=== PATIENT | female | born 1970 | race Caucasian/White ===

== ENCOUNTER 2020-06-29 15:59 | Emergency (ER) | payer MEDICAID, SELFPAY ==
--- NOTE | ~2020-06-29 | XR_ITS ---
EXAMINATION: XR foot RT min 3V DATE: 06/29/2020 16:38 INDICATION: Lateral right foot pain TECHNIQUE: Dorsoplantar, two oblique and lateral views of the right foot were obtained. COMPARISON: None. FINDINGS: There is minimal lateral DORSAL lateral subluxation at the second-fifth tarsal metatarsal joints. Reg ular cortical contour along the distal articular surfaces of the cuneiforms and cuboid which could be due to secondary osteoarthritis or age-indeterminate fracture in the appropriate clinical setting. S mall amount of heterotopic ossification at the first intermetatarsal space along the lateral base of the first metatarsal which suggests chronic injury. Mild osteoarthritis at the first metatarsophalang eal joint. Small Achilles and plantar calcaneal spurs. Prominent soft tissue swelling about the midfo ot. IMPRESSION: 1. Lisfranc joint injury with minimal lateral dorsolateral subluxation of the second-fourth metatarsa ls. 2. Regular cortical contour along portions of the distal articular surfaces of the cuneiforms and cub oid which could be related to secondary osteoarthritis or fractures in the setting of earlier trauma. In the absence of trauma the pattern could be seen in the setting of diabetic neuropathy/Charcot justino nt. Reviewed, dictated and finalized at location [facility] IMPRESSION: 1. Lisfranc joint injury with minimal lateral dorsolateral subluxation of the s econd-fourth metatarsals. 2. Regular cortical contour along portions of the distal articular surfaces of the cuneiforms and cuboid which could be related to secondary osteoarthritis or fractures in the setting of earlier trauma. In the absence of trauma the patte rn could be seen in the setting of diabetic neuropathy/Charcot joint.
[2020-06-29 16:00] VITALS: BP 196/84; PULSE 98; RESP 16; TEMP 36.4; O2SAT 100
--- NOTE | 2020-06-29 16:48 | ED.GENADULT ---
HPI - General Adult General Chief complaint: Extremity Injury, Lower <Silas Wilkinson PA-C - Last Filed: 06/29/20 18:16> Stated complaint: RIGHT FOOT INJURY <Silas Wilkinson PA-C - Last Filed: 06/29/20 18:16> Time Seen by Provider: 06/29/20 16:03 <Silas Wilkinson PA-C - Last Filed: 06/29/20 18:16> Source: patient and family <Silas Wilkinson PA-C - Last Filed: 06/29/20 18:16> Mode of arrival: ambulatory <Silas Wilkinson PA-C - Last Filed: 06/29/20 18:16> Limitations: no limitations <Silas Wilkinson PA-C - Last Filed: 06/29/20 18:16> History of Present Illness HPI narrative: Patient is a 50-year-old female who presents with pain to the right foot that has been present since Wednesday when she took her boot off and stepped down and had instant pain in the foot followed by swelling which she knows has improved patient has been resting and elevating the extremity with limited to no weightbearing and presents with family today noting she continues to have swelling and pain. Patient denies other injuries or complaints or similar occurrence in the past <Silas Wilkinson PA-C - Last Filed: 06/29/20 18:16> Related Data Home medications: Home Medications Medication Instructions Recorded Confirmed omeprazole [Prilosec] 20 mg PO DAILY 06/29/20 06/29/20 <Silas Wilkinson PA-C - Last Filed: 06/29/20 18:16> Allergies/adverse reactions: Allergies Allergy/AdvReac Type Severity Reaction Status Date / Time No Known Allergies Allergy Verified 06/29/20 16:07 <Silas Wilkinson PA-C - Last Filed: 06/29/20 18:16> Review of Systems Review of Systems: All systems reviewed & are unremarkable except as noted in HPI and below <Silas Wilkinson PA-C - Last Filed: 06/29/20 18:16> [facility] Social History Social History: Social History (Updated 06/29/20 @ 16:49 by Silas Wilkinson PA-C) Smoking status: Never smoker <Silas Wilkinson PA-C - Last Filed: 06/29/20 18:16> Exam Narrative: Exam Narrative: GENERAL: Well-appearing, well-nourished, and in no acute distress. HEAD: Normocephalic, atraumatic. EYES: PERRLA and EOMI. ENT: Nares clear, no rhinorrhea or epistaxis. Mucous membranes moist. EXTREMITIES: Normal range of motion. 2+ edema with bruising swelling and tenderness across the forefoot midfoot of the right foot ankle nontender SKIN: Warm, dry, no rash. NEURO: No focal deficits. Alert and oriented x3. Neurovascularly intact. Capillary refill less than 2 seconds PSYCH: Normal mood and affect. <JO-ANN Alvarez Last Filed: 06/29/20 18:16> Course Course Emergency Course: Patient evaluated in the emergency department found to have subluxation of the Lisfranc joint placed in OCL splint will have follow-up with orthopedic surgery patient agrees with this plan is aware of discussion and recommendations of orthopedic surgery <JO-ANN Alvarez Last Filed: 06/29/20 18:16> Consultations Consultation #1: Discussed case with orthopedic surgery who will follow patient in clinic would like the patient to be placed in well-padded short leg splint nonweightbearing status <JO-ANN Alvarez Last Filed: 06/29/20 18:16> Date: 06/29/20 <JO-ANN Alvarez Last Filed: 06/29/20 18:16> Time: 18:13 <JO-ANN Alvarez Last Filed: 06/29/20 18:16> Vital Signs Vital signs: Vital Signs Temperature 97.5 F L 06/29/20 16:00 Pulse Rate 98 06/29/20 16:00 Respiratory Rate 16 06/29/20 16:00 Blood Pressure 196/84 H 06/29/20 16:00 Pulse Oximetry 100 06/29/20 16:00 Temperature 97.5 F L 06/29/20 16:00 Pulse Rate 97 06/29/20 18:36 Respiratory Rate 18 06/29/20 18:36 Blood Pressure 187/76 H 06/29/20 18:36 Pulse Oximetry 98 06/29/20 18:36 <JO-ANN Alvarez Last Filed: 06/29/20 18:16> Vital Signs Temperature 97.5 F L 06/29/20 16:00 Pulse Rate 98 06/29/20 16:00 Respi
[2020-06-29] MEDS: HYDROcodone/acetaminophen (*CRX) 7.5-325 MG TABLET 1 TAB PO (17:41)
[2020-06-29 18:36] VITALS: BP 187/76; PULSE 97; RESP 18; O2SAT 98
== END 2020-06-29 18:37 | disposition home or self-care (01) ==
PROVIDERS: Emergency Provider General Practice; PCP Nurse Practitioner Family
DX: S93.321A Subluxation of tarsometatarsal joint of right foot, initial encounter (principal); X50.9XXA Other and unspecified overexertion or strenuous movements or postures, initial encounter
CPT/HCPCS: 73630; 99283; A9270